=== PATIENT | female | born 1965 | race Caucasian/White ===

== ENCOUNTER → 2017-04-20 | Outpatient (CLI) | payer BC ==
--- NOTE | 2017-04-25 11:56 | MAM ---
EXAM DESCRIPTION: 3D Screening BILATERAL digital mammography. CLINICAL HISTORY: 51 years Female SCREENING . No complaints. No family history breast cancer. Postmenopausal. Currently on HRT. Right breast cyst aspiration. Left breast biopsy benign. COMPARISON: 2-D digital screening bilateral studies 06/05/2015 and 10/16/2013. 2-D digital diagnostic right breast mammography 10/25/2013. No prior reports available. TECHNIQUE: Bilateral CC and MLO projection full-field images, 3-D tomosynthesis digital mammographic technique. Also bilateral synthesized CC/ MLO full-field images. CAD not utilized. FINDINGS: The breast parenchymal density pattern is: Heterogeneously dense breast tissue, which may obscure small masses. No skin thickening or nipple retraction bilateral scattered microcalcifications. Group in the upper outer quadrant of the middle third of the right breast is stable compared to prior studies. Intramammary lymph node upper outer quadrant left breast.. No focal, stellate mass or density, focal asymmetry , and no new microcalcifications bilaterally. Stable mammograms compared to prior studies, taking into account differences in mammographic technique IMPRESSION: BI-RADS CATEGORY: 2 - BENIGN FINDINGS. FOLLOW UP: Routine digital bilateral screening, one year interval from March 2017. Written communication explaining the IMPRESSION and follow-up, will be mailed to the patient and referring health care provider. According to the [employer], yearly mammograms are recommended starting at age 40 and continuing as long as a woman is in good health. Any breast change noted on a breast self-exam should be reported promptly to the patient's healthcare provider. Breast MRI is recommended for women with an approximately 20-25% or greater lifetime risk of breast cancer, including women with a strong family history of breast or ovarian cancer and women who have been treated for Hodgkin's disease. A negative mammographic report should not delay tissue diagnosis in patients with significant clinical history or physical findings. Extremely dense breast tissue limits the sensitivity of digital mammography. Electronically signed by: Juanito Kuhn MD 04/25/2017 11:55 AM [employer]
== END ==
LOC: MAMMO 11:30
PROVIDERS: ATTEND Family Medicine
DX: Z12.31 Encounter for screening mammogram for malignant neoplasm of breast (principal)

== ENCOUNTER → 2019-02-02 | Outpatient (CLI) | payer BC ==
--- NOTE | 2019-02-02 11:55 | RAD ---
EXAM DESCRIPTION: Shoulder,Right 2 or More Views CLINICAL HISTORY: 53 years Female, ARTHRITIS COMPARISON: None. Findings: Two-view/x-rays Location: Right shoulder No acute fracture or dislocation. No significant acromioclavicular osteoarthritis. Soft tissues are unremarkable. Subacromial space is maintained. Visualized chest is clear. Glenohumeral relationship is maintained. IMPRESSION: No evidence of acute process in the right shoulder. Electronically signed by: Jose Miguel Gaxiola MD 02/02/2019 11:54 AM [facility]
--- NOTE | 2019-02-02 11:56 | RAD ---
EXAM DESCRIPTION: Cervical Spine, 2-3 Views CLINICAL HISTORY: 53 years Female, ARTHRITIS COMPARISON: None. Findings: Four views/x-rays Location: Cervical spine C1- C7 demonstrated on the lateral view. The lung apices are unremarkable. Prevertebral soft tissues are unremarkable. No acute fracture or subluxation. Vertebral body heights are maintained. Mild multilevel degenerative disc disease. Multilevel disc space narrowing with endplate degenerative change, marginal osteophytosis and facet/uncinate process hypertrophy IMPRESSION: Mild multilevel cervical spondylosis. No acute fracture or subluxation. Electronically signed by: Jose Miguel Gaxiola MD 02/02/2019 11:54 AM [facility]
--- NOTE | 2019-02-02 11:57 | RAD ---
EXAM DESCRIPTION: Hand,Right 2 Views CLINICAL HISTORY: 53 years Female, ARTHRITIS COMPARISON: None. Findings: 2views/x-rays Location: Right hand No acute fracture or dislocation. Tiny first CMC osteophytes. Mild scattered asymmetric IP joint space narrowing most pronounced in the fifth digit with associated osteophytosis.. Soft tissues are unremarkable. IMPRESSION: No evidence of acute process in the right hand. Electronically signed by: Jose Miguel Gaxiola MD 02/02/2019 11:55 AM [facility]
--- NOTE | 2019-02-02 11:57 | RAD ---
2 radiographs of the left hand. Indication:ARTHRITIS Comparison: None. 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 No osseous erosions Mild osteoarthritis STT joint and first CMC joint suspected as well. No acute fracture or malalignment. Soft tissues are intact without radiopaque foreign body. Electronically signed by: John Bailey MD 02/02/2019 11:56 AM [facility]
--- NOTE | 2019-02-02 11:58 | RAD ---
3 radiographs lumbar spine Indication: ARTHRITIS Comparison: January 15, 2013 Impression: Minimal levocurvature. Vertebral body height maintained without fracture or subluxation. Moderate to severe disc space height loss at L5-S1 with ex vacuo disc phenomenon. Moderate disc space height loss at T12-L1. Facet arthrosis at L5-S1 suspected. Electronically signed by: John Bailey MD 02/02/2019 11:56 AM [facility]
== END ==
LOC: LAB.O 09:14
PROVIDERS: ATTEND Internal Medicine
DX: M19.042 Primary osteoarthritis, left hand (principal); M47.892 Other spondylosis, cervical region; M54.5 Low back pain; Z79.899 Other long term (current) drug therapy

== ENCOUNTER → 2020-04-21 | Outpatient (CLI) | payer BC ==
--- NOTE | 2020-04-21 11:33 | RAD ---
EXAM DESCRIPTION: Pelvis CLINICAL HISTORY: 54 years Female, HIP PAIN COMPARISON: None. TECHNIQUE: Single view radiograph of the pelvis. IMPRESSION: Partially obscured sacrum and coccyx by overlying bowel. No acute displaced fracture. No dislocation. Moderate arthrosis of the hips. Ill-defined calcific density overlying the greater trochanter bilaterally likely representing calcific tendinitis. Pelvic phleboliths. Electronically signed by: Lance Weinberg MD 04/21/2020 11:31 AM [facility]
--- NOTE | 2020-04-21 11:34 | RAD ---
EXAM DESCRIPTION: Knee,Right Complete CLINICAL HISTORY: 54 years Female, KNEE PAIN COMPARISON: None. TECHNIQUE: 4 view radiograph of the right knee. IMPRESSION: No acute displaced fracture. No dislocation. Mild joint space narrowing of the medial weightbearing knee compartment. Minimal subchondral sclerosis medial tibial plateau. No joint line osteophyte chest. Mild patellofemoral arthrosis. Small suprapatellar knee joint effusion. Minimal lateral patellar tilt but no subluxation. No radiographically apparent soft tissue abnormality. Electronically signed by: Lance Weinberg MD 04/21/2020 11:33 AM [facility]
== END ==
LOC: RAD 07:39
PROVIDERS: ATTEND Orthopaedic Surgery
DX: M25.861 Other specified joint disorders, right knee (principal); M17.11 Unilateral primary osteoarthritis, right knee; M25.461 Effusion, right knee; M89.9 Disorder of bone, unspecified; I86.2 Pelvic varices